=== PATIENT | female | born 1995 | race Caucasian/White ===

== ENCOUNTER 2016-05-11 07:40 | Emergency (ER) | payer OTHER ==
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
[2016-05-11 08:04] VITALS: TEMP 98.4; BMI 23.9
[2016-05-11] MEDS ORDERED: OXYCODONE HCL 5 MG TABLET PO ONE (08:19)
[2016-05-11] MEDS ORDERED: ONDANSETRON HCL 4 MG ODT TAB PO ONE (08:22)
[2016-05-11] MEDS ORDERED: ONDANSETRON HCL 4 MG ODT TAB ONE (08:23)
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
[2016-05-11 09:37] VITALS: BP 115/78; PULSE 80
== END 2016-05-11 09:35 | disposition home or self-care (01) ==
LOC: ED 07:40
DX: S20.219A Contusion of unspecified front wall of thorax, initial encounter (principal); S00.83XA Contusion of other part of head, initial encounter; V49.9XXA Car occupant (driver) (passenger) injured in unspecified traffic accident, initial encounter; Y93.9 Activity, unspecified; Y92.410 Unspecified street and highway as the place of occurrence of the external cause
CPT/HCPCS: 71020; 99284; J3490